=== PATIENT | female | born 1975 | race Caucasian/White ===

== ENCOUNTER 2023-01-25 18:48 | Emergency (ER) | payer OTHER ==
[2023-01-25 18:55] VITALS: BP 124/90; PULSE 103; RESP 18; TEMP 98.2; BMI 40.0
[2023-01-25] MEDS ORDERED: ACETAMINOPHEN 1000 MG/100 ML BAG IVPB ONE (20:08)
[2023-01-25] MEDS ORDERED: FAMOTIDINE 20 MG/50 ML IVPB 20 MG/50 ML MG IVPB ONE ×2 (20:08→20:35)
[2023-01-25] MEDS ORDERED: MAG HYDROX/AL HYDROX/SIMETH 30 ML UNIT-DOSE CUP PO ONE (20:09)
[2023-01-25] MEDS ORDERED: SUCRALFATE 1 GM TABLET (FP) PO ONE (20:09)
[2023-01-25] MEDS ORDERED: MAG HYDROX/AL HYDROX/SIMETH 30 ML UNIT-DOSE CUP ONE (20:34)
[2023-01-25] MEDS ORDERED: ACETAMINOPHEN INJECTION 100 ML IVPB ONE (20:34)
[2023-01-25] MEDS ORDERED: SUCRALFATE 1 GM TABLET (FP) ONE (20:34)
[2023-01-25 21:13] LABS: BASO % 0.4 % (0-2.0); EOS % 0.5 % (0-4.5); HEMATOCRIT 39.1 % (32.4-45.2); LYMPH % 15.7 % (8-40); MCH 26.8 pg (25.7-33.7); MCHC 33.2 g/dl (32.0-36.0); MEAN CELL VOLUME 80.6 fl (80-96); MEAN PLT VOLUME 9.5 fl (7.5-11.1); MONO % 6.8 % (3.8-10.2); NEUT % 76.6 % (42.8-82.8); PLATELET COUNT 288 10^3/uL (134-434); RBC 4.86 M/mm3 (3.60-5.2); RDW 15.8 % (11.6-15.6); WHITE BLOOD COUNT 9.4 K/mm3 (4.0-10.0)
[2023-01-25 21:33] LABS: CHLORIDE 106 mmol/L (98-107); SODIUM 135 mmol/L (136-145)
[2023-01-25 21:34] LABS: CO2 27 mmol/L (21-32); GLUCOSE,RANDOM 102 mg/dL (74-106); LIPASE 74 U/L (73-393); MAGNESIUM 2.4 mg/dL (1.8-2.4)
[2023-01-25 21:35] LABS: ALBUMIN 3.6 g/dl (3.4-5.0)
[2023-01-25 21:38] LABS: CREATININE 0.6 mg/dL (0.55-1.3); SGOT/AST 54 U/L (15-37); SGPT/ALT 20 U/L (13-61)
[2023-01-25 21:40] LABS: ALK PHOS 71 U/L (45-117); BILIRUBIN,TOTAL 0.8 mg/dL (0.2-1); TOT PROT 7.9 g/dl (6.4-8.2)
[2023-01-25 21:49] LABS: ANION GAP 2 MMOL/L (8-16); POTASSIUM 7.6 mmol/L (3.5-5.1)
[2023-01-25 23:29] LABS: CALCIUM 9.1 mg/dL (8.5-10.1); POTASSIUM 4.1 mmol/L (3.5-5.1)
[2023-01-25 23:31] LABS: BLOOD UREA NITROGEN 11.2 mg/dL (7-18)
[2023-01-25 23:34] LABS: CREATININE 0.6 mg/dL (0.55-1.3)
== END 2023-01-25 23:40 | disposition home or self-care (01) ==
LOC: JER 18:48
PROC: 3E033GC Introduction of Other Therapeutic Substance into Peripheral Vein, Percutaneous Approach (ICD-10-PCS; principal; 2023-01-25)
PROC: 3E033NZ Introduction of Analgesics, Hypnotics, Sedatives into Peripheral Vein, Percutaneous Approach (ICD-10-PCS; principal; 2023-01-25)
DX: M54.9 Dorsalgia, unspecified (principal); R07.9 Chest pain, unspecified; R10.9 Unspecified abdominal pain
CPT/HCPCS: 36415; 71046-TC-FY; 80048; 80053; 83690; 83735; 84484; 85025; 93005; 93010; 96365; 96375; 99285-25

== ENCOUNTER 2023-02-15 14:05 | Emergency (ER) | payer OTHER ==
[2023-02-15 14:24] VITALS: RESP 18; TEMP 98.5; BMI 38.2
[2023-02-15] MEDS ORDERED: LIDOCAINE 5% TOPICAL PATCH TP ONE (15:03)
[2023-02-15] MEDS ORDERED: ACETAMINOPHEN 1000 MG/100 ML BAG IVPB ONE (15:03)
[2023-02-15] MEDS ORDERED: LIDOCAINE 5% TOPICAL PATCH ONE (15:06)
[2023-02-15 15:53] LABS: BASO % 0.3 % (0-2.0); EOS % 0.2 % (0-4.5); HCG,QUALITATIVE URINE Negative; HEMATOCRIT 41.6 % (32.4-45.2); HEMOGLOBIN 13.8 GM/dL (10.7-15.3); LYMPH % 13.5 % (8-40); MCHC 33.1 g/dl (32.0-36.0); MEAN CELL VOLUME 81.5 fl (80-96); MEAN PLT VOLUME 9.8 fl (7.5-11.1); MONO % 5.5 % (3.8-10.2); NEUT % 80.5 % (42.8-82.8); PLATELET COUNT 258 10^3/uL (134-434); RBC 5.11 M/mm3 (3.60-5.2); WHITE BLOOD COUNT 8.4 K/mm3 (4.0-10.0)
[2023-02-15 15:55] LABS: EPI CELLS 25 /uL (0-25.1); HYALINE CASTS 1 /uL (0-3.1); PH,URINE 7.5 (5.0-8.0); URINE APPEARANCE CLEAR; URINE BACTERIA 291 /uL (0-1359); URINE BILIRUBIN NEGATIVE (NEGATIVE); URINE COLOR YELLOW; URINE GLUCOSE (UA) NEGATIVE (NEGATIVE); URINE KETONE TRACE (NEGATIVE); URINE LEUK ESTERASE TRACE (NEGATIVE); URINE NITRITE NEGATIVE (NEGATIVE); URINE PROTEIN NEGATIVE (NEGATIVE); URINE UROBILINOGEN 0.2 mg/dL (0.2-1.0); URINE WBC 25 /uL (0-25.8)
[2023-02-15 16:07] LABS: POTASSIUM 4.6 mmol/L (3.5-5.1)
[2023-02-15 16:10] LABS: CALCIUM 9.7 mg/dL (8.5-10.1)
[2023-02-15 16:11] LABS: ALBUMIN 3.8 g/dl (3.4-5.0); BLOOD UREA NITROGEN 7.6 mg/dL (7-18)
[2023-02-15 16:14] LABS: CREATININE 0.7 mg/dL (0.55-1.3)
[2023-02-15 16:16] LABS: BILIRUBIN,TOTAL 0.7 mg/dL (0.2-1); TOT PROT 8.1 g/dl (6.4-8.2)
[2023-02-15 16:33] LABS: URINE RBC 37 /uL (0-23.9)
[2023-02-15 18:11] VITALS: BP 108/66; PULSE 78
[2023-02-15] MEDS ORDERED: LIDOCAINE PATCH REMOVAL MC SCH (22:00)
== END 2023-02-15 18:53 | disposition home or self-care (01) ==
LOC: JER 14:05
PROC: 3E033NZ Introduction of Analgesics, Hypnotics, Sedatives into Peripheral Vein, Percutaneous Approach (ICD-10-PCS; principal; 2023-02-15)
DX: M54.6 Pain in thoracic spine (principal); R10.13 Epigastric pain; N64.4 Mastodynia; R11.2 Nausea with vomiting, unspecified
CPT/HCPCS: 36415; 71046-TC-FY; 71275-TC; 80053; 81003; 84484; 84703; 85025; 85379; 93005; 93010; 96374; 99285-25; Q9967